=== PATIENT | male | born 1990 | race Caucasian/White ===

== ENCOUNTER 2019-11-18 16:05 | Emergency (ER) | payer OTHER, SELFPAY ==
[2019-11-18 16:21] VITALS: BP 137/86; PULSE 75; RESP 18; TEMP 36.6; O2SAT 99
--- NOTE | 2019-11-18 16:26 | ED.GENADULT ---
HPI - General Adult General Chief complaint: Upper Respiratory Infection Stated complaint: bronchitis/sinus Time Seen by Provider: 11/18/19 16:32 Source: patient Mode of arrival: ambulatory Limitations: no limitations History of Present Illness HPI narrative: 29-year-old male patient presents to the [facility] with complaints of cold symptoms and sore throat. Patient states he has had some sinus symptoms and states that whenever he blows his nose some green snot comes out and he has had the symptoms for about 2 weeks. Patient denies any fevers. Denies any cough. Denies any chest pain or shortness of breath. Denies any abdominal pain, nausea, vomiting or diarrhea. Patient states he has been taking Claritin for his symptoms but not consistently. Patient states that he started having sore throat yesterday and it got worse today. Patient states he was tested for COVID but that was over a month ago and he did not have any symptoms at the time. Related Data Allergies Allergy/AdvReac Type Severity Reaction Status Date / Time No Known Allergies Allergy Unverified 02/03/16 15:28 Review of Systems Review of Systems: Narrative: CONSTITUTIONAL: Denies fever, chills, or sweats. EYES: Denies visual changes, redness, or discharge. ENT: Positive rhinorrhea, congestion, sore throat, denies otalgia. CARDIOVASCULAR: Denies chest pain, palpitations, or edema. RESPIRATORY: Denies cough or dyspnea. GASTROINTESTINAL: Denies abdominal pain, nausea, vomiting, or diarrhea. GENITOURINARY: Denies dysuria or hematuria. SKIN: Denies rash or itching. MUSCULOSKELETAL: Denies back pain, joint pain, or myalgia. NEUROLOGIC: Denies headache, numbness, or weakness. PSYCHIATRIC: Denies anxiety or depression. PMFSH Past Medical History Medical History (Updated 11/18/19 @ 17:11 by BRI See) Bronchitis Social History Social History (Updated 11/18/19 @ 16:41 by BRI See) Smoking status: Former smoker Comments At the time of my signature I agree with nursing past medical history, surgical, social, and family history. There is no relevant family history pertinent to the presenting complaint. Exam Narrative: Exam Narrative: GENERAL: Well-appearing, well-nourished, and in no acute distress. HEAD: Normocephalic, atraumatic. No tenderness noted to frontal maxillary sinuses on palpation EYES: PERRLA and EOMI. ENT: Right nares are swollen shut, no active rhinorrhea or epistaxis. Mucous membranes moist. Posterior pharynx with erythema but no tonsil enlargement, no exudates or lesions present. Bilateral TMs are clear no erythema or foreign bodies to the canal. NECK: Supple. No lymphadenopathy CHEST: Clear to auscultation. No respiratory distress. Patient able talk in clear complete sentences. HEART: Regular rate and rhythm. No murmur heard. Normal peripheral pulses. ABDOMEN: Soft, nontender, nondistended, normal active bowel sounds. EXTREMITIES: Normal range of motion. No edema. SKIN: Warm, dry, no rash. NEURO: No focal deficits. Alert and oriented x3. Course Reevaluation(s) Reevaluation #1: Reevaluated patient after his strep test had resulted back. Notified him the strep test today is negative. Discussed with him that we will discharge him home with some Flonase to help with the rhinosinusitis and I encouraged him to continue using the Claritin [id number] and taking Tylenol and ibuprofen as needed. Discussed with patient that I did fax over an order for COVID-19 testing in which they will call him in the next couple of days to set up a time to get tested. Discussed with him is very important to stay isolated at home until he gets the results. Discussed with him if he has worsening symptoms such as chest pain, shortness of breath that he would need to go the ER for further evaluation and treatment. Patient verbalized understanding of this denies any other questions or concerns at this time. Date: 11/18/19 Time: 17:13 Vital Si
== END 2019-11-18 17:13 | disposition home or self-care (01) ==
PROVIDERS: Emergency Provider Nurse Practitioner Family; PCP Family Medicine Sports Medicine
DX: J01.90 Acute sinusitis, unspecified (principal); J02.9 Acute pharyngitis, unspecified; Z20.828 Contact with and (suspected) exposure to other viral communicable diseases; Z87.891 Personal history of nicotine dependence
CPT/HCPCS: 87081; 87880; 99213; G0463

== ENCOUNTER 2020-11-05 20:31 | Emergency (ER) | payer OTHER, SELFPAY ==
[2020-11-05 20:38] VITALS: BP 143/95; PULSE 79; RESP 20; TEMP 36.8; O2SAT 100
[2020-11-05 21:23] LABS: Add Urine Microscopic? YES; Appearance Urine Cloudy (Clear); Bacteria Urine Trace /hpf; Bilirubin Urine Negative (Negative); Blood Urine Negative (Negative); Color Urine Yellow (Yellow); Glucose Urine UA Negative (Negative); Ketones Urine Negative (Negative); Leukocyte Esterase Ur Trace LEU/UL (Negative); Mucus Urine Few /lpf; Nitrate Urine Negative (Negative); Protein Urine Negative (Negative); RBC Urine 0-2 /hpf (0-2); Specific Grav Ur 1.015 (1.001-1.035); Squamous Epithelial Cell Urine Occasional /hpf (Few); Urobilinogen Urine Negative mg/dL (<2.0); WBC Urine 0-3 /hpf
--- NOTE | 2020-11-05 21:54 | ED.GENADULT ---
HPI - General Adult General Chief complaint: Urogenital-Male Stated complaint: uti, flank pain Time Seen by Provider: 11/05/20 21:48 History of Present Illness HPI narrative: There is a 30-year-old gentleman who presents the emergency department with chief complaint of dysuria. The patient reports that when he urinates its like peeing razor blades. Patient reports approximately 1 month ago he had intercourse and not had intercourse before approximately a year ago prior to that. Patient reports that his partner told him that she had had chlamydia afterwards and the patient is concerned that he may have an STI. Patient states he has had some aching in the right flank area patient denies penile discharge denies any lesions in the genital area. Patient reports he has been previously treated for an STI when his significant other had gonorrhea Related Data Allergies Allergy/AdvReac Type Severity Reaction Status Date / Time No Known Allergies Allergy Verified 11/05/20 20:40 Review of Systems Review of Systems: Narrative: A 10 system review of systems was completed on the patient and is negative except for what is stated in the HPI. Nursing and ancillary documentation was reviewed. PMFSH Past Medical History Medical History Bronchitis Social History Social History Smoking status: Former smoker Gender identity (if verbalized by the patient): Male Exam Narrative: Exam Narrative: GENERAL: Well-appearing, well-nourished, and in no acute distress. HEAD: Normocephalic, atraumatic. EYES: PERRLA and EOMI. ENT: Nares clear, no rhinorrhea or epistaxis. Mucous membranes moist. NECK: Supple. CHEST: Clear to auscultation. No respiratory distress. HEART: Regular rate and rhythm. No murmur heard. Normal peripheral pulses. ABDOMEN: Soft, nontender, nondistended, normal active bowel sounds. EXTREMITIES: Normal range of motion. No edema. SKIN: Warm, dry, no rash. NEURO: No focal deficits. Alert and oriented x3. PSYCH: Normal mood and affect. Course Vital Signs Vital signs: Vital Signs Temperature 36.8 C 11/05/20 20:38 Pulse Rate 79 11/05/20 20:38 Respiratory Rate 20 11/05/20 20:38 Blood Pressure 143/95 H 11/05/20 20:38 Pulse Oximetry 100 11/05/20 20:38 Temperature 36.8 C 11/05/20 20:38 Pulse Rate 79 11/05/20 20:38 Respiratory Rate 20 11/05/20 20:38 Blood Pressure 143/95 H 11/05/20 20:38 Pulse Oximetry 100 11/05/20 20:38 Medical Decision Making Vital Signs Vital Signs: Vital Signs Temperature 36.8 C 11/05/20 20:38 Pulse Rate 79 11/05/20 20:38 Respiratory Rate 20 11/05/20 20:38 Blood Pressure 143/95 H 11/05/20 20:38 Pulse Oximetry 100 11/05/20 20:38 Temperature 36.8 C 11/05/20 20:38 Pulse Rate 79 11/05/20 20:38 Respiratory Rate 11/05/20 20:38 Blood Pressure 143/95 H 11/05/20 20:38 Pulse Oximetry 100 11/05/20 20:38 Lab Data Labs: Lab Results 11/05/20 Range/Units 21:09 Urine Color Yellow (Yellow) Urine Appearance Cloudy H (Clear) Urine pH 6.0 (5.0-9.0) Ur Specific [place] 1.015 (1.001-1.035) Urine Protein Negative (Negative) mg/dL Urine Glucose (UA) Negative (Negative) mg/dL Urine Ketones Negative (Negative) mg/dL Ur Blood (Man) Negative (Negative) Urine Nitrate Negative (Negative) Urine Bilirubin Negative (Negative) Urine Urobilinogen Negative (<2.0) mg/dL Leukocyte Esterase Rfl Trace H (Negative) [place]/UL Urine RBC 0-2 (0-2) /hpf Urine WBC 0-3 /hpf Ur Squamous Epith Cells Occasional (Few) /hpf Urine Bacteria Trace /hpf Urine Mucus Few H /lpf Discharge Plan Discharge Clinical Impression: Urethritis Patient Disposition: Home, Self-Care Condition: Stable Instructions: Antibiotic Form, Nonspecific Urethritis in Men (ED) Prescriptions: N
[2020-11-05] MEDS: cefTRIAXone 1 GM VIAL 0.5 GM IM (22:06)
[2020-11-05] MEDS: LIDOCAINE HCL 2% LOCAL INJ 20 ML VIAL (22:08)
== END 2020-11-05 22:12 | disposition home or self-care (01) ==
PROVIDERS: Emergency Medicine; Emergency Provider Emergency Medicine; PCP Family Medicine
DX: N34.2 Other urethritis (principal); Z87.891 Personal history of nicotine dependence
CPT/HCPCS: 81001; 96372; 99283; J0696

== ENCOUNTER 2023-03-20 10:10 | Emergency (ER) | payer BC, SELFPAY ==
--- NOTE | 2023-03-20 10:17 | ED.URI ---
HPI - URI/Sore Throat General Chief Complaint: Upper Respiratory Infection Stated Complaint: Cough/Sinus Time Seen by Provider: 03/20/23 10:15 Source: patient Mode of arrival: ambulatory Limitations: no limitations History of Present Illness HPI Narrative: Patient is a 33-year-old male who presents with 3 weeks of persistent cough. Patient has history of asthma and bronchitis. Patient has been using Robitussin and albuterol inhaler with no relief. Patient states he is unable to lay flat at night and has cough keeps him up throughout the night. Denies any congestion, sore throat, ear pain, fever, chills, nausea, vomiting, diarrhea. Related Data Allergies Allergy/AdvReac Type Severity Reaction Status Date / Time No Known Allergies Allergy Verified 03/20/23 10:25 Review of Systems Review of Systems: All systems reviewed & are unremarkable except as noted in HPI and below Constitutional: Constitutional: Denies body ache(s), Denies chills, Denies fatigue, Denies fever(s), Denies headache(s), Denies malaise and Denies weakness Eyes: Eyes: Denies blurry vision, Denies itchy eyes and Denies loss of vision ENT: Denies otalgia, Denies headache(s), Denies nasal congestion, Denies sinus pain and Denies sore throat Cardiovascular: Cardiovascular: Denies chest pain, Denies irregular heart rhythm and Denies dyspnea Respiratory: Respiratory: Reports cough and Denies dyspnea Gastrointestinal: Gastrointestinal: Denies abdominal pain, Denies diarrhea, Denies nausea and Denies vomiting Musculoskeletal: Musculoskeletal: Denies back pain, Denies myalgias and Denies arthralgias Integumentary/Breasts: Skin/Breast: Denies pruritus and Denies rash Neurologic: Denies headache(s), Denies loss of vision and Denies weakness Psychiatric: Psychiatric: Reports no additional psychiatric complaints Endocrine: Endocrine: Denies fatigue Allergic/Immunologic: Allergic/Immunologic: Denies itchy eyes PMFSH Past Medical History Medical History Bronchitis Social History Social History Smoking status: Former smoker Gender identity (if verbalized by the patient): Male Comments At time of signature, agree with nursing past medical, surgical, social and family history. There is no relevant family history pertinent to the presenting complaint. Exam Const: General: cooperative, healthy appearing, comfortable, no acute distress and well nourished Nutritional Appearance: well nourished Orientation/consciousness: patient oriented x3 Limitations: no limitations HENMT: Head: normal to inspection, normocephalic and atraumatic Ears: hearing grossly normal bilaterally, external ears normal, TM's normal bilaterally, EAC's normal and no periauricular adenopathy Face/Nose/Sinus: Normal external nose present, Normal nasal mucous membranes and turbinates present, normal facial exam, sinuses nontender and face symmetric Face and sinus: normal facial exam, sinuses nontender and face symmetric Mouth: Yes Normal oral and palatal mucosa present, Yes lip normal, Yes tongue normal, Yes Normal salivary glands and ducts present, Yes oropharynx normal and Yes moist mucous membranes Teeth and gingiva: dentition normal Throat: posterior oropharynx normal, tonsils normal and uvula midline Eyes: General: appearance normal, both eyes and all related structures Alignment and Position: alignment normal and position normal Periorbital: periorbital findings normal Eyelids: eyelids normal Pupils: Equal, round and reactive pupils present Neck: Neck: normal visual inspection, full ROM, no lymphadenopathy and supple Chest: Chest palpation & inspection: normal inspection of the chest and normal palpation of entire chest wall Resp: Effort & Inspection: normal respiratory effort and able to speak in complete sentences Auscultation: clear to auscultation bilaterally, no cr
[2023-03-20 10:22] VITALS: BP 152/91; PULSE 91; RESP 16; TEMP 37.1; O2SAT 100
== END 2023-03-20 10:53 | disposition home or self-care (01) ==
PROVIDERS: Emergency Provider Nurse Practitioner Family; PCP Family Medicine
DX: J40 Bronchitis, not specified as acute or chronic (principal); Z87.891 Personal history of nicotine dependence
CPT/HCPCS: 99213; G0463

== ENCOUNTER 2023-07-16 14:52 | Emergency (ER) | payer BC, SELFPAY ==
[2023-07-16 15:00] VITALS: BP 157/84; PULSE 86; RESP 16; TEMP 36.5; O2SAT 100
--- NOTE | 2023-07-16 15:03 | ED.URI ---
HPI - URI/Sore Throat General Chief Complaint: Upper Respiratory Infection Stated Complaint: Sinus Time Seen by Provider: 07/16/23 15:03 Source: patient Mode of arrival: ambulatory Limitations: no limitations History of Present Illness HPI Narrative: 33 yo M presents with c/o sinsu congestion, pressure, PND, cough for [address] with no relief. Afebrile. Staets sinus pressure causing headaches and had to leave work. all systems reviewed and negative except as noted above. Related Data Home Medications Medication Instructions Recorded Confirmed albuterol sulfate 90 mcg/actuation See Rx Instructions .Route .COMPLEX 07/16/23 07/16/23 aerosol inhaler Allergies Allergy/AdvReac Type Severity Reaction Status Date / Time No Known Allergies Allergy Verified 07/16/23 14:57 Review of Systems Review of Systems: CONSTITUTIONAL: Denies fever, chills, or sweats. EYES: Denies visual changes, redness, or discharge. ENT: Reports rhinorrhea, congestion, sinus pressure. Denies sore throat, or otalgia. CARDIOVASCULAR: Denies chest pain, palpitations, or edema. RESPIRATORY: reports cough denies dyspnea. GASTROINTESTINAL: Denies abdominal pain, nausea, vomiting, or diarrhea. GENITOURINARY: Denies dysuria or hematuria. SKIN: Denies rash or itching. MUSCULOSKELETAL: Denies back pain, joint pain, or myalgia. NEUROLOGIC: Denies headache, numbness, or weakness. PSYCHIATRIC: Denies anxiety or depression. All other systems reviewed are negative, except as documented in HPI. [facility] Past Medical History Medical History Bronchitis Social History Social History Smoking status: Former smoker Gender identity (if verbalized by the patient): Male Comments At time of signature, agree with nursing past medical, surgical, social and family history. There is no relevant family history pertinent to the presenting complaint. Exam Narrative: GENERAL: This is a well-nourished, well-developed patient, in no apparent distress. HEAD: normocephalic, atraumatic. EYES: PERRL. Sclera clear/white. Vision is grossly intact. EARS: External ears normal, auditory canals clear and without drainage, fluid bilateral TMs without erythema or perforation. Hearing grossly intact. NOSE: External nose normal with congestion, purulent nasal drainage, erythema swelling to bilateral nares. Frontal and maxillary sinus tenderness on palpation Bilaterally. THROAT: Mucous membranes moist, Erythema postnasal drainage. NECK: Neck supple, non-tender without lymphadenopathy, masses or thyromegaly. CARDIOVASCULAR: Regular rate and rhythm without murmurs, gallops, or rubs. RESPIRATORY: Clear to auscultation. Breath sounds equal bilaterally. No wheezes, rales, or rhonchi. SKIN: warm, Dry, intact with no suspicious lesions or rash, good texture and turgor. NEURO: awake, alert, and oriented to person, place and time. There were no obvious focal neurologic abnormalities. EXTREMITIES: No joint tenderness, effusion, or edema noted. Course Course Level of Care: Express Care Visit Vital Signs Vital signs: Vital Signs Temperature 36.5 C 07/16/23 15:00 Pulse Rate 86 07/16/23 15:00 Respiratory Rate 16 07/16/23 15:00 Blood Pressure 157/84 H 07/16/23 15:00 Pulse Oximetry 100 07/16/23 15:00 Oxygen Delivery Room Air 07/16/23 15:00 Temperature 36.5 C 07/16/23 15:00 Pulse Rate 86 07/16/23 15:00 Respiratory Rate 16 07/16/23 15:00 Blood Pressure 157/84 H 07/16/23 15:00 Pulse Oximetry 100 07/16/23 15:00 Oxygen Delivery Room Air 07/16/23 15:00 Reviewed MDM - URI/Sore Throat MDM Narrative Medical decision making narrative: Patient is aware of diagnosis, understands and agrees to treatment plan. Anticipatory guidance given. Patient agrees to follow-up as directed and is aware of reasons to seek
== END 2023-07-16 15:16 | disposition home or self-care (01) ==
PROVIDERS: Emergency Provider Nurse Practitioner Family
DX: J01.90 Acute sinusitis, unspecified (principal); Z87.891 Personal history of nicotine dependence
CPT/HCPCS: 99213; G0463

== ENCOUNTER 2024-01-03 19:24 | Emergency (ER) | payer BC, SELFPAY ==
[2024-01-03 19:27] VITALS: BP 158/89; PULSE 83; RESP 16; TEMP 36.6; O2SAT 98
--- NOTE | 2024-01-03 19:44 | PC.NURSE ---
edp enzo seeing patient in triage bay 2
--- NOTE | 2024-01-03 19:54 | ED.GENADULT ---
HPI - General Adult General Chief complaint: Ear Stated complaint: ear infection Time Seen by Provider: 01/03/24 19:50 History of Present Illness HPI narrative: patient is a 33-year-old gentleman presents emergency department with chief complaint of right ear pain and right upper tooth pain. Patient reports that he had a wisdom tooth crack and started having pain from his jaw into his ear. The patient states he is unsure if he has ear infection or if it is just the pain from the tooth. Related Data Home Medications Medication Instructions Recorded Confirmed albuterol sulfate 90 mcg/actuation See Rx Instructions .Route .COMPLEX 07/16/23 07/16/23 aerosol inhaler Allergies Allergy/AdvReac Type Severity Reaction Status Date / Time No Known Allergies Allergy Verified 07/16/23 14:57 Review of Systems Review of Systems: A 10 system review of systems was completed on the patient and is negative except for what is stated in the HPI. Nursing and ancillary documentation was reviewed. PMFSH Past Medical History Medical History Bronchitis Social History Social History Smoking status: Former smoker Gender identity (if verbalized by the patient): Male Exam Narrative: GENERAL: Well-appearing, well-nourished, and in no acute distress. HEAD: Normocephalic, atraumatic. EYES: PERRLA and EOMI. ENT: Nares clear, no rhinorrhea or epistaxis. Mucous membranes moist. Right upper molar there is significant decay with fracture no erythema of the tympanic membranes NECK: Supple. CHEST: Clear to auscultation. No respiratory distress. HEART: Regular rate and rhythm. No murmur heard. Normal peripheral pulses. ABDOMEN: Soft, nontender, nondistended, normal active bowel sounds. EXTREMITIES: Normal range of motion. No edema. SKIN: Warm, dry, no rash. NEURO: No focal deficits. Alert and oriented x3. PSYCH: Normal mood and affect. Course Vital Signs Vital signs: Vital Signs Temperature 36.6 C 01/03/24 19:27 Pulse Rate 83 01/03/24 19:27 Respiratory Rate 16 01/03/24 19:27 Blood Pressure 158/89 H 01/03/24 19:27 Pulse Oximetry 98 01/03/24 19:27 Temperature 36.6 C 01/03/24 19:27 Pulse Rate 83 01/03/24 19:27 Respiratory Rate 16 01/03/24 19:27 Blood Pressure 158/89 H 01/03/24 19:27 Pulse Oximetry 98 01/03/24 19:27 Medical Decision Making MDM Narrative Medical decision making narrative: differential diagnosis includes otitis media, photon tells a, dental abscess patient was started on amoxicillin and instructed to follow-up with his dentist. Vital Signs Vital Signs: Vital Signs Temperature 36.6 C 01/03/24 19:27 Pulse Rate 83 01/03/24 19:27 Respiratory Rate 16 01/03/24 19:27 Blood Pressure 158/89 H 01/03/24 19:27 Pulse Oximetry 98 01/03/24 19:27 Temperature 36.6 C 01/03/24 19:27 Pulse Rate 83 01/03/24 19:27 Respiratory Rate 16 01/03/24 19:27 Blood Pressure 158/89 H 01/03/24 19:27 Pulse Oximetry 98 01/03/24 19:27 Discharge Plan Discharge Clinical Impression: Abscess, dental Patient Disposition: Home, Self-Care Condition: Stable Instructions: Antibiotic Form, Dental Abscess (ED), Earache (ED) Prescriptions: New amoxicillin 500 mg capsule 500 mg PO Q12H Qty: 20 0RF No Action albuterol sulfate 90 mcg/actuation HFA aerosol inhaler See Rx Instructions .ROUTE .COMPLEX Rx Instructions: Rx prednisone 20 mg tablet 40 mg PO DAILY 5 Days Qty: 10 0RF fluticasone propionate [Flonase Allergy Relief] 50 mcg/actuation spray,suspension 1 spray intranasal BID Qty: 16 0RF Rx Instructions: administer into each nostril amoxicillin-pot clavulanate [Augmentin] 500-125 mg tablet 1 tablet PO BID 10 Days Qty: 20 0RF Follow-up/Referrals: PHYSICIAN,[facility] [place]
[2024-01-03] MEDS: AMOXICILLIN 500 MG CAPSULE PO (20:11)
[2024-01-03] MEDS: HYDROcodone/acetaminophen (*CRX) 5-325 MG TABLET 1 TAB PO (20:11)
== END 2024-01-03 20:48 | disposition home or self-care (01) ==
LOC: ANHED 20:33
PROVIDERS: Emergency Provider Emergency Medicine
DX: K04.7 Periapical abscess without sinus (principal)
CPT/HCPCS: 99283; A9270

== ENCOUNTER 2024-06-02 16:21 | Emergency (ER) | payer OTHER, SELFPAY ==
[2024-06-02 16:31] VITALS: BP 145/99; PULSE 83; RESP 16; TEMP 36.2; O2SAT 99
--- NOTE | 2024-06-02 16:34 | ED_ITS ---
HPI - URI/Sore Throat General Chief Complaint: Upper Respiratory Infection Stated Complaint: cough,chest/nasal congestion Time Seen by Provider: 06/02/24 16:59 Source: patient and RN notes reviewed Mode of arrival: ambulatory Limitations: no limitations History of Present Illness HPI Narrative: 34-year-old male presents with concern of for 79 day history of sinus pressure, cough, nasal congestion, chest congestion, chills. Reports he has been taking Benadryl and Claritin-D. Reports he works in a [employer] MD elicited complaint: cough and nasal congestion Related Data Home Medications ?Medication ?Instructions ?Recorded ?Confirmed ?Last Taken ?Type amitriptyline 25 mg tablet 25 mg PO DAILY 06/02/24 06/02/24 Unknown History hydrocodone 5 mg-acetaminophen 325 1 tablet PO Q8H PRN pain 06/02/24 06/02/24 Unknown History mg tablet Allergies Allergy/AdvReac Type Severity Reaction Status Date / Time No Known Allergies Allergy Verified 06/02/24 16:23 Review of Systems Review of Systems: CONSTITUTIONAL: Reports malaise, chills EYES: Denies visual changes, redness, or discharge. ENT: Reports rhinorrhea, congestion CARDIOVASCULAR: Denies chest pain, palpitations, or edema. RESPIRATORY: Reports cough chest congestion. Denies dyspnea. GASTROINTESTINAL: Denies abdominal pain, nausea, vomiting, diarrhea SKIN: Denies rash or itching. MUSCULOSKELETAL: Denies myalgia. NEUROLOGIC: Denies headache. All systems reviewed & are unremarkable except as noted in HPI and below PMFSH Past Medical History Medical History Bronchitis Social History Social History Smoking status: Former smoker Gender identity (if verbalized by the patient): Male Comments At time of signature, agree with nursing past medical, surgical, social and family history. There is no relevant family history pertinent to the presenting complaint Exam Narrative: GENERAL: Nontoxic-appearing, well-nourished, and in no acute distress. HEAD: Normocephalic EYES: PERRLA, conjunctivae clear ENT: Nares clear. Mucous membranes moist. TM pearly lyle with dull light reflex bilaterally; no tragal tenderness. Oropharynx not erythematous without lesions. Tonsils not enlarged and without exudate, no drooling, no trismus, uvula midline. Hoarse voice NECK: Supple. No lymphadenopathy CHEST: Clear to auscultation, breath sounds equal. No wheezing, rhonchi, rales, or stridor. No respiratory distress, speaks in full sentences. HEART: Regular rate and rhythm. No murmur heard. SKIN: Warm, dry, no rash. NEURO: Alert and oriented x3. PSYCH: Normal mood and affect Course Course Emergency Course: Patient is aware of diagnosis, understands and agrees to treatment plan. Anticipatory guidance given. Patient agrees to follow-up as directed and is aware of reasons to seek care at the emergency department. Portions of this record may have been created with voice recognition software Level of Care: Express Care Visit Vital Signs Vital signs: Vital Signs Temperature 97.2 F L 06/02/24 16:31 Pulse Rate 83 06/02/24 16:31 Respiratory Rate 16 06/02/24 16:31 Blood Pressure 145/99 H 06/02/24 16:31 Pulse Oximetry 99 06/02/24 16:31 Oxygen Delivery Room Air 06/02/24 16:31 Temperature 97.2 F L 06/02/24 16:31 Pulse Rate 83 06/02/24 16:31 Respiratory Rate 16 06/02/24 16:31 Blood Pressure 145/99 H 06/02/24 16:31 Pulse Oximetry 99 06/02/24 16:31 Oxygen Delivery Room Air 06/02/24 16:31 Reviewed. MDM - URI/Sore Throat MDM Narrative Medical decision making narrative: Differential diagnosis considered: Gan virus, strep pharyngitis, allergic rhinitis, upper respiratory tract infection, sinusitis, rhinosinusitis, nasopharyngitis. viral pharyngitis, otitis media, otitis externa, pneumonia, bronchitis, viral cough syndrome, viral syndrome, and influenza. Exam findings show no acute concerns or changes; patient is non-toxic appearing and is in no distress. Patient is appropriate for outpatient treatment and follow-up. Lab Data Attestation: I reviewed the patient's lab results. Critical Care Time Critical Care Time Critical Care Time: No Discharge Plan Discharge Clinical Impression: Sinobronchitis Patient Disposition: Home, Self-Care Condition: Stable Instructions: Antibiotic Form, Sinusitis (ED) Additional Instructions: Take medication as directed Recommend antihistamine such as Benadryl at night time and Zyrtec or Debbie during the day Also, recommend symptomatic treatment includes: rest, fluids, and increase humidity of the air at home. Recommend Acetaminophen as directed on the bottle to reduce fever, pain, headache. Avoid smoking/second-hand smoke. Please schedule a follow-up visit with your personal physician for further evaluation and treatment within 3-5days. Including recheck and discussion of your blood pressure. If your symptoms persist, change or worsen significantly before you can contact your personal physician then please, without delay, go to the emergency department for further evaluation. Patient Language: Greenlandic Prescriptions: New doxycycline monohydrate 100 mg tablet 100 mg PO BID 7 Days Qty: 14 0RF methylprednisolone [Medrol (Eddy)] 4 mg tablets,dose pack See Rx Instructions .ROUTE .COMPLEX Qty: 21 0RF Rx Instructions: orally per package directions No Action amitriptyline 25 mg tablet 25 mg PO DAILY hydrocodone-acetaminophen 5-325 mg tablet 1 tablet PO Q8H PRN (Reason: pain) Follow-up/Referrals: Ney,Carlo Mccrary MD [Primary Care Provider] - Stand Alone Forms: Work/School Release IP Time of Disposition: 17:04
== END 2024-06-02 17:07 | disposition home or self-care (01) ==
PROVIDERS: Emergency Provider Nurse Practitioner; PCP Family Medicine
DX: J32.9 Chronic sinusitis, unspecified (principal); J40 Bronchitis, not specified as acute or chronic; Z87.891 Personal history of nicotine dependence
CPT/HCPCS: 99213; G0463